=== PATIENT | female | born 1955 | race Caucasian/White ===

== ENCOUNTER 2022-06-03 05:23 | Inpatient (IN) | payer MEDICARE, OTHER ==
[~2022-06-03] VITALS: Ht 160 cm; Wt 120.5 kg
[2022-06-03] VITALS (53 sets, daily range): BP systolic 58–124; BP diastolic 17–59
[2022-06-03] MEDS ORDERED: ALTEPLASE (RECOMBINANT) 100 MG ONE (05:43)
[2022-06-03] MEDS: MIDAZOLAM DRIP 50 mg/50mL 50 ML IV SCH ×3 (06:30→21:35)
[2022-06-03] MEDS ORDERED: NOREPINEPHRINE 8 MG/250ML KIT 250 ML IV ONE (07:25)
[2022-06-03] MEDS: NOREPINEPHRINE 8 MG/250ML KIT 250 ML IV SCH ×3 (07:30→23:50)
[2022-06-03] MEDS ORDERED: EPINEPHrine HCL 250 ML IV ONE (07:45)
[2022-06-03] MEDS ORDERED: HYDROCORTISONE SOD SUCC 100 MG/2ML INJ VIAL IV ONE (07:45)
[2022-06-03] MEDS ORDERED: EPINEPHrine HCL 250 ML IV SCH (07:45)
[2022-06-03 07:47] LABS: Hemoglobin 19.3 g/dL (12.2-16.2); Mean Corpuscular Hemoglobin 31.3 pg (28.0-32.0); Mean Corpuscular Hgb Conc. 32.2 g/dL (32.0-36.0); Mean Corpuscular Volume 97.1 fL (80.0-100.0); Red Blood Cells 6.17 10^6/uL (4.0-5.20); Red Cell Distribution Width 17.2 % (11.8-14.3); White Blood Cell 18.6 10^3/uL (4.4-10.8)
[2022-06-03 07:57] LABS: Hematocrit 59.9 % (36.0-46.0)
[2022-06-03 07:59] LABS: Basophils % (manual) 0 (0.0-2.0); Blast Cells 0; Eosinophils % (manual) 0 (0-7); Reactive Lymphocytes 0
[2022-06-03 08:05] LABS: Albumin 2.8 g/dL (3.4-5.0); Calcium 10.2 mg/dL (8.5-10.1)
[2022-06-03 08:10] LABS: Bilirubin, Total 1.2 mg/dL (0.2-1.0); Total Protein 6.9 g/dL (6.4-8.2)
[2022-06-03] MEDS: DOPamine 1600MCG/ML D5W 250 ML IV SCH ×2 (08:25→22:27)
[2022-06-03 08:37] LABS: Magnesium 4.5 mg/dL (1.6-2.6); Potassium 6.6 mmol/L (3.5-5.1)
[2022-06-03 08:40] LABS: INR 3.9 (0.9-1.15)
[2022-06-03 08:42] LABS: Partial Thromboplastin Time 89.3 sec (24.6-33.4)
[2022-06-03 08:43] LABS: BUN/Creatinine Ratio 23.6
[2022-06-03] MEDS ORDERED: ALBUTEROL SULF 2.5 MG/0.5ML(0.5%) NEB SOLN NEB ONE (08:45)
[2022-06-03] MEDS ORDERED: InsuLIN REG 1unit/0.01ml Soln (100units/ml) IV ONE (08:45)
[2022-06-03] MEDS ORDERED: CALCIUM GLUC 1,000mg/50ml-NS 50 ML IV ONE (08:45)
[2022-06-03] MEDS ORDERED: SODIUM BICARBONATE 8.4 % INJ 50ML VIAL IV ONE ×3 (08:45→23:00)
[2022-06-03] MEDS ORDERED: DEXTROSE (50%) 50ML SYRG IV ONE (08:45)
[2022-06-03] MEDS ORDERED: DEXTROSE 10% 500 ML IV ONE (09:00)
[2022-06-03 09:29] LABS: Band Neutrophils % (manual) 8; Lymphocytes % (manual) 9 (10.0-50.0); Metamyelocytes % 2; Monocytes % (manual) 4 (0-12); Myelocytes % 1; Promyelocytes % 1
[2022-06-03] MEDS ORDERED: VANCOMYCIN PER PHARMACY 0 MG IV SCH (10:15)
[2022-06-03] MEDS ORDERED: PANTOPRAZOLE 80 MG in SODIUM CHL 0.9% 100 ML IV ONE (10:15)
[2022-06-03] MEDS ORDERED: MORPHINE SULFATE INJ 2 MG/ml SYRG IV PRN (10:15)
[2022-06-03] MEDS ORDERED: NITROGLYCERIN 0.4 MG SL TAB SL PRN (10:15)
[2022-06-03] MEDS: fentaNYL Drip 2500mCg/250mlNS 250 ML IV SCH (10:34)
[2022-06-03] MEDS ORDERED: SODIUM BICARBONATE 50ML VIAL 150 ML in D5W 5% 1,000 ML IV ONE (10:45)
[2022-06-03] MEDS ORDERED: PIPERACILLIN-TAZOB 2.25GM 50 ML IV ONE (11:00)
[2022-06-03 11:28] LABS: Cholesterol 130 mg/dL (< 200); HDL Cholesterol 15 mg/dL (40-59); LDL Cholesterol 89 mg/dL (< 100); Triglycerides 250 mg/dL (< 150)
[2022-06-03] MEDS: PANTOPRAZOLE 40mg/50ML NS AE 50 ML IV SCH ×3 (11:47→20:22)
[2022-06-03] MEDS ORDERED: metroNIDAZOLE 500MG/100ML 100 ML IV ONE (12:00)
[2022-06-03] MEDS ORDERED: VANCOMYCIN 1GM/250ML 250 ML IV ONE (13:00)
[2022-06-03 13:04] LABS: BUN/Creatinine Ratio 24.8; Calcium 8.3 mg/dL (8.5-10.1); Potassium 4.5 mmol/L (3.5-5.1)
[2022-06-03 13:11] LABS: Ferritin > 1650.0 ng/mL (10-322); Folate (Folic Acid) 15.63 ng/mL (5.38-24)
[2022-06-03 14:26] LABS: Hemoglobin 17.6 g/dL (12.2-16.2)
[2022-06-03 14:28] LABS: Hematocrit 53.4 % (36.0-46.0)
[2022-06-03] MEDS ORDERED: SODIUM CHLORIDE 0.9% 1,000 ML IV SCH (15:30)
[2022-06-03] MEDS: PHENYLEPHRINE INJ 80 MG in SODIUM CHL 0.9% 242 ML IV SCH (15:30)
[2022-06-03] MEDS ORDERED: FUROSEMIDE 100 MG/10ML VIAL IV ONE (16:30)
[2022-06-03] MEDS ORDERED: FUROSEMIDE INJECTION 10 ML ONE (16:40)
[2022-06-03] MEDS ORDERED: phytonadione 10 MG in SODIUM CHL 0.9% 50 ML IV ONE (16:45)
[2022-06-03] MEDS: OCTREOTIDE ACETATE 500 MCG in SODIUM CHL 0.9% 99 ML IV SCH (17:03)
[2022-06-03] MEDS: metroNIDAZOLE 500MG/100ML 100 ML IV SCH (17:06)
[2022-06-03] MEDS: PIPERACILLIN-TAZOB 2.25GM 50 ML IV SCH (17:15)
[2022-06-03 17:50] LABS: Albumin 2.1 g/dL (3.4-5.0); BUN/Creatinine Ratio 25.6; Calcium 7.4 mg/dL (8.5-10.1); Potassium 4.6 mmol/L (3.5-5.1)
[2022-06-03] MEDS ORDERED: LOSA-39 PO (17:57)
[2022-06-03 17:58] LABS: Total Protein 5.7 g/dL (6.4-8.2)
[2022-06-03] MEDS ORDERED: ALBUTEROL MEDNEB 2.5 mg/3ml NEB ONE ×2 (18:01→21:59)
[2022-06-03] MEDS: IPRATROPIUM BROM 0.5 MG/2.5ML INH SOL NEB SCH ×2 (18:32→22:01)
[2022-06-03] MEDS: ALBUTEROL SULF 2.5 MG/0.5ML(0.5%) NEB SOLN NEB SCH ×2 (18:32→22:01)
[2022-06-03 18:37] LABS: Hematocrit 54.6 % (36.0-46.0); Hemoglobin 17.5 g/dL (12.2-16.2)
[2022-06-03 18:47] LABS: Phosphorus 9.5 mg/dL (2.5-4.90)
[2022-06-03 18:55] LABS: Lactic Acid w/Reflex 6.9 mmol/L (0.4-2.0)
[2022-06-03 19:47] LABS: Urine Bacteria NONE SEEN /hpf (None Seen); Urine Blood 3+ /uL (Negative); Urine WBC 15 /hpf (0 - 5)
[2022-06-03 19:58] LABS: Alcohol, Urine < 3.0 mg/dL (0-10); Amphetamine Screen, Urine NEGATIVE (NEGATIVE); Barbiturate Scree,Urine NEGATIVE (NEGATIVE); Benzodiazephine Screen, Urine POSITIVE (NEGATIVE); Cannabinoid Screen, Urine NEGATIVE (NEGATIVE); Cocaine Screen, Urine NEGATIVE (NEGATIVE)
[2022-06-03 20:06] LABS: Opiate Scree,Urine NEGATIVE (NEGATIVE); Phencyclidine Screen, Urine NEGATIVE (NEGATIVE)
[2022-06-03] MEDS: FUROSEMIDE INJECTION 100 MG in SODIUM CHL 0.9% 100 ML IV SCH (20:47)
[2022-06-03 21:21] LABS: Hemoglobin 17.9 g/dL (12.2-16.2)
[2022-06-03 21:23] LABS: Hematocrit 54.6 % (36.0-46.0); Mean Corpuscular Hemoglobin 31.1 pg (28.0-32.0); Mean Corpuscular Hgb Conc. 32.8 g/dL (32.0-36.0); Mean Corpuscular Volume 94.8 fL (80.0-100.0); Red Blood Cells 5.76 10^6/uL (4.0-5.20); Red Cell Distribution Width 16.6 % (11.8-14.3); White Blood Cell 22.8 10^3/uL (4.4-10.8)
[2022-06-03 21:32] LABS: Basophils % (manual) 0 (0.0-2.0); Blast Cells 0; Eosinophils % (manual) 0 (0-7); Metamyelocytes % 0; Promyelocytes % 0; Reactive Lymphocytes 0
[2022-06-03] MEDS ORDERED: ATROPINE SULF 1 MG/10ml SYR IV ONE (23:00)
[2022-06-03] MEDS ORDERED: CALCIUM CHL 100MG/ML 1,000 MG in D5W 5% 100 ML IV ONE (23:00)
[2022-06-03 23:32] LABS: Band Neutrophils % (manual) 24; Lymphocytes % (manual) 5 (10.0-50.0); Monocytes % (manual) 2 (0-12); Myelocytes % 1
[2022-06-04] VITALS (133 sets, daily range): BP systolic 103–157; BP diastolic 32–72
[2022-06-04] MEDS: PIPERACILLIN-TAZOB 2.25GM 50 ML IV SCH ×2 (00:01→08:06)
[2022-06-04] MEDS: methylPREDNISolone SOD SUCC 40 MG/ML VL IV SCH ×5 (00:02→23:48)
[2022-06-04] MEDS: MIDAZOLAM DRIP 50 mg/50mL 50 ML IV SCH ×6 (00:45→21:50)
[2022-06-04] MEDS: metroNIDAZOLE 500MG/100ML 100 ML IV SCH (00:59)
[2022-06-04] MEDS: PANTOPRAZOLE 40mg/50ML NS AE 50 ML IV SCH ×5 (01:15→21:24)
[2022-06-04] MEDS: OCTREOTIDE ACETATE 500 MCG in SODIUM CHL 0.9% 99 ML IV SCH ×3 (01:45→21:45)
[2022-06-04] MEDS ORDERED: ALBUTEROL MEDNEB 2.5 mg/3ml NEB ONE ×4 (02:06→14:06)
[2022-06-04] MEDS: IPRATROPIUM BROM 0.5 MG/2.5ML INH SOL NEB SCH ×4 (02:09→14:07)
[2022-06-04] MEDS: ALBUTEROL SULF 2.5 MG/0.5ML(0.5%) NEB SOLN NEB SCH ×4 (02:09→14:07)
[2022-06-04] MEDS: FUROSEMIDE INJECTION 100 MG in SODIUM CHL 0.9% 100 ML IV SCH ×4 (05:17→20:30)
[2022-06-04 06:05] LABS: Hematocrit 48.8 % (36.0-46.0); Hemoglobin 16.3 g/dL (12.2-16.2); Mean Corpuscular Hgb Conc. 33.4 g/dL (32.0-36.0); Mean Corpuscular Volume 92.8 fL (80.0-100.0); Red Blood Cells 5.25 10^6/uL (4.0-5.20); White Blood Cell 24.6 10^3/uL (4.4-10.8)
[2022-06-04 06:20] LABS: Calcium 6.5 mg/dL (8.5-10.1); Potassium 4.6 mmol/L (3.5-5.1)
[2022-06-04 06:24] LABS: Basophils % (manual) 0 (0.0-2.0); Blast Cells 0; Eosinophils % (manual) 0 (0-7); Metamyelocytes % 0; Promyelocytes % 0; Reactive Lymphocytes 0
[2022-06-04 06:31] LABS: Albumin 2.5 g/dL (3.4-5.0); BUN/Creatinine Ratio 23.4; Bilirubin, Total 2.1 mg/dL (0.2-1.0); Total Protein 5.7 g/dL (6.4-8.2)
[2022-06-04] MEDS: SODIUM BICARB 50ML SYR 150 ML in D5W 5% 1,000 ML IV SCH ×2 (08:00→20:10)
[2022-06-04] MEDS: fentaNYL Drip 2500mCg/250mlNS 250 ML IV SCH (08:30)
[2022-06-04 08:39] LABS: INR 1.94 (0.9-1.15)
[2022-06-04 11:23] LABS: Band Neutrophils % (manual) 41; Lymphocytes % (manual) 9 (10.0-50.0); Monocytes % (manual) 1 (0-12); Myelocytes % 1
[2022-06-04 12:18] LABS: Hematocrit 46.4 % (36.0-46.0); Hemoglobin 15.5 g/dL (12.2-16.2)
[2022-06-04] MEDS: DOPamine 1600MCG/ML D5W 250 ML IV SCH (13:09)
[2022-06-04] MEDS: CEFEPIME 2 GM in SODIUM CHL 0.9% 50 ML IV SCH (14:57)
[2022-06-04] MEDS: PHENYLEPHRINE INJ 80 MG in SODIUM CHL 0.9% 242 ML IV SCH (15:27)
[2022-06-04 18:31] LABS: Hematocrit 46.5 % (36.0-46.0); Hemoglobin 15.6 g/dL (12.2-16.2)
[2022-06-04] MEDS: NOREPINEPHRINE 8 MG/250ML KIT 250 ML IV SCH (19:03)
[2022-06-05] VITALS (101 sets, daily range): BP systolic 100–142; BP diastolic 44–67
[2022-06-05] MEDS: fentaNYL Drip 2500mCg/250mlNS 250 ML IV SCH (00:03)
[2022-06-05] MEDS: IPRATROPIUM BROM 0.5 MG/2.5ML INH SOL NEB SCH ×8 (00:10→22:09)
[2022-06-05] MEDS: ALBUTEROL MEDNEB 2.5 mg/3ml NEB NEB SCH ×8 (00:10→22:09)
[2022-06-05 01:18] LABS: Hematocrit 43.4 % (36.0-46.0); Hemoglobin 14.7 g/dL (12.2-16.2)
[2022-06-05] MEDS: FUROSEMIDE INJECTION 100 MG in SODIUM CHL 0.9% 100 ML IV SCH ×5 (01:30→21:03)
[2022-06-05] MEDS: PANTOPRAZOLE 40mg/50ML NS AE 50 ML IV SCH ×2 (02:20→10:00)
[2022-06-05] MEDS: DOPamine 1600MCG/ML D5W 250 ML IV SCH (02:21)
[2022-06-05] MEDS: MIDAZOLAM DRIP 50 mg/50mL 50 ML IV SCH ×5 (03:33→22:19)
[2022-06-05 04:27] LABS: Eosinophils # (auto) 0 10 ^3/uL (0-0.8); Neutrophils % (auto) 89.5 % (37.0-80.0); Red Cell Distribution Width 16.3 % (11.8-14.3)
[2022-06-05 04:30] LABS: Basophils # (auto) 0.1 10 ^3/uL (0-0.2); Basophils % (auto) 0.4 % (0.0-2.0); Eosinophils % (auto) 0.1 % (0.0-7.0); Hematocrit 43.1 % (36.0-46.0); Hemoglobin 14.7 g/dL (12.2-16.2); Lymphocytes # (auto) 1.5 10 ^3/uL (0.4-5.4); Lymphocytes % (auto) 6.8 % (10.0-50.0); Mean Corpuscular Hemoglobin 31.5 pg (28.0-32.0); Mean Corpuscular Hgb Conc. 34.1 g/dL (32.0-36.0); Mean Corpuscular Volume 92.4 fL (80.0-100.0); Monocytes # (auto) 0.7 10 ^3/uL (0-1.3); Monocytes % (auto) 3.2 % (0.0-12.0); Neutrophils # (auto) 19.2 10 ^3/uL (1.6-8.6); Red Blood Cells 4.67 10^6/uL (4.0-5.20); White Blood Cell 21.5 10^3/uL (4.4-10.8)
[2022-06-05 04:53] LABS: Nucleated Red Blood Cells % 8.8 %
[2022-06-05 04:55] LABS: Albumin 2.1 g/dL (3.4-5.0); Potassium 4.4 mmol/L (3.5-5.1)
[2022-06-05 04:58] LABS: Bilirubin, Total 1.4 mg/dL (0.2-1.0); INR 1.58 (0.9-1.15); Phosphorus 6.4 mg/dL (2.5-4.90); Total Protein 5.4 g/dL (6.4-8.2)
[2022-06-05 05:06] LABS: Calcium 5.9 mg/dL (8.5-10.1)
[2022-06-05] MEDS: methylPREDNISolone SOD SUCC 40 MG/ML VL IV SCH ×4 (05:45→23:54)
[2022-06-05] MEDS: SODIUM BICARB 50ML SYR 150 ML in D5W 5% 1,000 ML IV SCH (05:50)
[2022-06-05] MEDS: OCTREOTIDE ACETATE 500 MCG in SODIUM CHL 0.9% 99 ML IV SCH (08:14)
[2022-06-05] MEDS ORDERED: VANCOMYCIN 1GM/250ML 250 ML IV ONE (12:00)
[2022-06-05 12:06] LABS: Hematocrit 45.1 % (36.0-46.0)
[2022-06-05] MEDS ORDERED: SODIUM CHL 0.9% 1000 ML BAG XX ONE (13:00)
[2022-06-05] MEDS: CEFEPIME 2 GM in SODIUM CHL 0.9% 50 ML IV SCH (14:00)
[2022-06-05] MEDS: PHENYLEPHRINE INJ 80 MG in SODIUM CHL 0.9% 242 ML IV SCH (15:30)
[2022-06-05] MEDS: PANTOPRAZOLE 40 MG/10 ML VIAL INJ IV SCH (21:03)
[2022-06-06] VITALS (99 sets, daily range): BP systolic 96–126; BP diastolic 41–65
[2022-06-06] MEDS: MIDAZOLAM DRIP 50 mg/50mL 50 ML IV SCH ×6 (01:23→19:36)
[2022-06-06] MEDS: FUROSEMIDE INJECTION 100 MG in SODIUM CHL 0.9% 100 ML IV SCH ×5 (02:04→22:52)
[2022-06-06] MEDS: IPRATROPIUM BROM 0.5 MG/2.5ML INH SOL NEB SCH ×6 (02:14→22:25)
[2022-06-06] MEDS: ALBUTEROL MEDNEB 2.5 mg/3ml NEB NEB SCH ×6 (02:14→22:25)
[2022-06-06 03:33] LABS: Mean Corpuscular Hemoglobin 31.3 pg (28.0-32.0)
[2022-06-06 03:36] LABS: Basophils # (auto) 0.1 10 ^3/uL (0-0.2); Basophils % (auto) 0.4 % (0.0-2.0); Eosinophils # (auto) 0.1 10 ^3/uL (0-0.8); Eosinophils % (auto) 0.3 % (0.0-7.0); Hematocrit 44.9 % (36.0-46.0); Hemoglobin 15.3 g/dL (12.2-16.2); Lymphocytes # (auto) 1.8 10 ^3/uL (0.4-5.4); Lymphocytes % (auto) 8.2 % (10.0-50.0); Mean Corpuscular Volume 92.1 fL (80.0-100.0); Monocytes # (auto) 0.6 10 ^3/uL (0-1.3); Neutrophils # (auto) 18.9 10 ^3/uL (1.6-8.6); Neutrophils % (auto) 88.1 % (37.0-80.0); Red Blood Cells 4.88 10^6/uL (4.0-5.20); Red Cell Distribution Width 16.4 % (11.8-14.3); White Blood Cell 21.5 10^3/uL (4.4-10.8)
[2022-06-06 03:56] LABS: Nucleated Red Blood Cells % 4.9 %
[2022-06-06 04:03] LABS: Potassium 5.1 mmol/L (3.5-5.1)
[2022-06-06 04:09] LABS: BUN/Creatinine Ratio 18.2; Bilirubin, Total 1.2 mg/dL (0.2-1.0); Calcium 6.6 mg/dL (8.5-10.1); Total Protein 5.6 g/dL (6.4-8.2)
[2022-06-06] MEDS: NOREPINEPHRINE 8 MG/250ML KIT 250 ML IV SCH (05:30)
[2022-06-06] MEDS: methylPREDNISolone SOD SUCC 40 MG/ML VL IV SCH ×4 (06:00→23:54)
[2022-06-06] MEDS ORDERED: SODIUM CHL 0.9% 1000 ML BAG XX ONE (07:00)
[2022-06-06] MEDS: PANTOPRAZOLE 40 MG/10 ML VIAL INJ IV SCH ×2 (10:30→21:57)
[2022-06-06] MEDS: fentaNYL Drip 2500mCg/250mlNS 250 ML IV SCH (14:58)
[2022-06-06] MEDS: PHENYLEPHRINE INJ 80 MG in SODIUM CHL 0.9% 242 ML IV SCH (15:09)
[2022-06-06] MEDS: CEFEPIME 2 GM in SODIUM CHL 0.9% 50 ML IV SCH (15:09)
[2022-06-06] MEDS ORDERED: ALBUTEROL SULF 2.5 MG/0.5ML(0.5%) NEB SOLN ONE ×2 (18:10→22:19)
[2022-06-06] MEDS: BUDESONIDE (INHALATION) 0.5 MG/2 ML NEB NEB SCH (18:16)
[2022-06-07] VITALS (69 sets, daily range): BP systolic 101–142; BP diastolic 43–64
[2022-06-07] MEDS ORDERED: ALBUTEROL SULF 2.5 MG/0.5ML(0.5%) NEB SOLN ONE ×3 (02:07→09:50)
[2022-06-07] MEDS: IPRATROPIUM BROM 0.5 MG/2.5ML INH SOL NEB SCH ×3 (02:08→10:04)
[2022-06-07] MEDS: ALBUTEROL MEDNEB 2.5 mg/3ml NEB NEB SCH ×3 (02:08→10:04)
[2022-06-07] MEDS: MIDAZOLAM DRIP 50 mg/50mL 50 ML IV SCH ×3 (03:21→10:14)
[2022-06-07] MEDS: FUROSEMIDE INJECTION 100 MG in SODIUM CHL 0.9% 100 ML IV SCH ×2 (03:30→08:30)
[2022-06-07 04:15] LABS: BUN/Creatinine Ratio 16.1; Calcium 7.5 mg/dL (8.5-10.1); Potassium 5.1 mmol/L (3.5-5.1)
[2022-06-07 04:41] LABS: Hematocrit 45.4 % (36.0-46.0); Hemoglobin 15.2 g/dL (12.2-16.2); Mean Corpuscular Hgb Conc. 33.4 g/dL (32.0-36.0); Red Cell Distribution Width 16.2 % (11.8-14.3)
[2022-06-07 04:42] LABS: Mean Corpuscular Volume 92.7 fL (80.0-100.0); White Blood Cell 20.2 10^3/uL (4.4-10.8)
[2022-06-07 04:44] LABS: Basophils % (manual) 0 (0.0-2.0); Blast Cells 0; Eosinophils % (manual) 0 (0-7); Metamyelocytes % 0; Myelocytes % 0; Promyelocytes % 0; Reactive Lymphocytes 0
[2022-06-07 06:00] LABS: Band Neutrophils % (manual) 18; Lymphocytes % (manual) 3 (10.0-50.0); Monocytes % (manual) 1 (0-12)
[2022-06-07] MEDS: methylPREDNISolone SOD SUCC 40 MG/ML VL IV SCH ×2 (06:13→11:42)
[2022-06-07] MEDS: NOREPINEPHRINE 8 MG/250ML KIT 250 ML IV SCH (07:45)
[2022-06-07] MEDS: fentaNYL Drip 2500mCg/250mlNS 250 ML IV SCH (08:30)
[2022-06-07] MEDS ORDERED: VANCOMYCIN 1GM/250ML 250 ML IV ONE (10:00)
[2022-06-07] MEDS: BUDESONIDE (INHALATION) 0.5 MG/2 ML NEB NEB SCH (10:04)
[2022-06-07] MEDS: PANTOPRAZOLE 40 MG/10 ML VIAL INJ IV SCH (10:06)
[2022-06-07] MEDS ORDERED: LORazepam 2MG/ML-1ML VIAL IV PRN (13:15)
[2022-06-07] MEDS ORDERED: MORPHINE SULFATE INJ 2 MG/ml SYRG IV PRN (13:15)
== END 2022-06-07 17:12 | DRG 870 ==
LOC: EDUNIT# 05:23 → EDBD 05:23 → ER 05:23 → TELE 10:36 → ICU WEST 13:25
PROVIDERS: ADMIT Registered Nurse; ATTEND Nurse Practitioner Acute Care
PROC: 5A2204Z Restoration of Cardiac Rhythm, Single (ICD-10-PCS; principal; 2022-06-03)
PROC: 06HY33Z Insertion of Infusion Device into Lower Vein, Percutaneous Approach (ICD-10-PCS; 2022-06-03)
PROC: 0BH17EZ Insertion of Endotracheal Airway into Trachea, Via Natural or Artificial Opening (ICD-10-PCS; 2022-06-03)
PROC: 5A1955Z Respiratory Ventilation, Greater than 96 Consecutive Hours (ICD-10-PCS; 2022-06-03)
PROC: 30233K1 Transfusion of Nonautologous Frozen Plasma into Peripheral Vein, Percutaneous Approach (ICD-10-PCS; 2022-06-03)
PROC: 5A12012 Performance of Cardiac Output, Single, Manual (ICD-10-PCS; 2022-06-03)
PROC: 4A00X4Z Measurement of Central Nervous Electrical Activity, External Approach (ICD-10-PCS; 2022-06-04)
PROC: 30233R1 Transfusion of Nonautologous Platelets into Peripheral Vein, Percutaneous Approach (ICD-10-PCS; 2022-06-04)
PROC: 30233M1 Transfusion of Nonautologous Plasma Cryoprecipitate into Peripheral Vein, Percutaneous Approach (ICD-10-PCS; 2022-06-04)
PROC: 02HV33Z Insertion of Infusion Device into Superior Vena Cava, Percutaneous Approach (ICD-10-PCS; 2022-06-05)
DX: A41.89 Other specified sepsis (principal); D65 Disseminated intravascular coagulation [defibrination syndrome]; R65.21 Severe sepsis with septic shock; I21.4 Non-ST elevation (NSTEMI) myocardial infarction; J18.9 Pneumonia, unspecified organism; J96.01 Acute respiratory failure with hypoxia; K72.00 Acute and subacute hepatic failure without coma; N17.0 Acute kidney failure with tubular necrosis; G93.41 Metabolic encephalopathy; J44.0 Chronic obstructive pulmonary disease with (acute) lower respiratory infection; J98.11 Atelectasis; E87.4 Mixed disorder of acid-base balance; G93.1 Anoxic brain damage, not elsewhere classified; I96 Gangrene, not elsewhere classified; M62.82 Rhabdomyolysis; Z68.42 Body mass index [BMI] 45.0-49.9, adult; K92.2 Gastrointestinal hemorrhage, unspecified; I42.9 Cardiomyopathy, unspecified; Z20.822 Contact with and (suspected) exposure to COVID-19; I46.9 Cardiac arrest, cause unspecified; E66.01 Morbid (severe) obesity due to excess calories; D75.1 Secondary polycythemia; E78.5 Hyperlipidemia, unspecified; E87.5 Hyperkalemia; I48.91 Unspecified atrial fibrillation; N20.0 Calculus of kidney; R04.0 Epistaxis; R31.0 Gross hematuria; R79.1 Abnormal coagulation profile; T45.615A Adverse effect of thrombolytic drugs, initial encounter; I10 Essential (primary) hypertension; Z91.041 Radiographic dye allergy status; Z88.0 Allergy status to penicillin; Z91.013 Allergy to seafood; Z90.710 Acquired absence of both cervix and uterus
CPT/HCPCS: 31500; 36415; 36556; 36600; 70450; 71045; 71250; 72125; 74176; 76775; 80048; 80053; 80061; 80202; 80307; 81001; 82550; 82607; 82728; 82746; 82805; 82962; 83036; 83540; 83550; 83605; 83615; 83735; 84100; 84443; 84484; 85007; 85014; 85018; 85025; 85027; 85045; 85049; 85384; 85610; 85730; 86850; 86900; 86901; 87040; 87070; 87077; 87081; 87086; 87186; 87205; 87426; 90935; 93005; 93306; 93886; 93925; 93970; 94002; 94003; 94640; 95819; 96365; 96367; 96368; 96375; 99291; C9113; G0378; J0171; J1815; J2250; J2543; J3430; J3490; J7060